=== PATIENT | female | born 2005 | race Caucasian/White ===

== ENCOUNTER 2023-01-26 02:00 | Emergency (ER) | payer SELFPAY ==
[~2023-01-26] VITALS: Ht 157.5 cm; Wt 48.1 kg
[2023-01-26 02:09] VITALS: BP_SYST 147; PULSE 98; RESP 18; TEMP 98.8; O2SAT 96
== END 2023-01-26 03:09 | disposition left against medical advice (07) ==
LOC: SED 02:00
DX: F41.9 Anxiety disorder, unspecified (principal); Z53.21 Procedure and treatment not carried out due to patient leaving prior to being seen by health care provider
CPT/HCPCS: 99281